=== PATIENT | female | born 1940 | race Caucasian/White ===

== ENCOUNTER 2017-07-12 19:58 | Emergency (ER) | END 2017-07-13 01:30 | disposition home or self-care (01) ==

== ENCOUNTER 2017-10-07 14:56 | Emergency (ER) | END 2017-10-07 20:05 | disposition home or self-care (01) ==

== ENCOUNTER 2017-12-17 09:08 | Emergency (ER) | END 2017-12-17 11:51 | disposition home or self-care (01) ==

== ENCOUNTER 2018-05-14 20:44 | Emergency (ER) | payer BC ==
[~2018-05-14] VITALS: Ht 147.3 cm; Wt 40.0 kg
[~2018-05-14 20:44] MED LIST: ASPI-817 PO; ATOR40TA68 PO; DEXT1DRO6 OP; FOLI-49 PO; HYDR-4011 PO; HYDR4TAB51 PO; IBUP800T48 PO; LEVO50TA7 PO; LORA1TAB PO; MIRT7.5T8 PO; QUET25TA PO; ZOLP5TAB PO
[2018-05-14 20:48] VITALS: Ht 147.3 cm; Wt 40.0 kg
[2018-05-14] MEDS ORDERED: SOD CHLORIDE 0.9% 1,000 ML IV STA (21:00)
--- NOTE | 2018-05-14 21:20 | ERD ---
ER Documentation Chief Complaint Chief Complaint "hypotension" sbp 90's: 108/60 on scene per EMS; from hospice house HPI This is a 77-year-old chronically debilitated, comatose woman brought in by EMS from [facility] facility for low blood pressure. Patient resides in a hospice house and is under hospice care. HPI was obtained by EMS and reviewing facility records. Patient has had no vomiting, no seizure activity, and his c hronically unresponsive ROS All systems reviewed and are negative except as per history of present illness. Medications Home Meds Active Scripts Hydrocodone/Acetaminophen ([place] 5-325 Tablet) 1 Each Tablet, 1 EACH PO Q8 for 5 Days, TAB Prov:ROSIBERNADETTESTELLA DO 12/17/17 Ibuprofen* (Motrin*) 800 Mg Tab, 800 MG PO Q6H PRN for PAIN AND OR ELEVATED TEMP, #30 TAB Prov:SANYA ARANDA DO 12/17/17 Reported Medications Folic Acid* (Folic Acid*) 1 Mg Tablet, 1 MG PO DAILY, TAB 12/17/17 Quetiapine Fumarate* (Seroquel*) 25 Mg Tablet, 25 MG PO BID, #60 TAB 12/17/17 Zolpidem Tartrate* (Ambien*) 5 Mg Tablet, 5 MG PO QHS PRN for INSOMNIA, #30 TAB 12/17/17 Mirtazapine* (Mirtazapine*) 7.5 Mg Tablet, 3.75 MG PO HS, TAB 12/17/17 Lorazepam* (Lorazepam*) 1 Mg Tablet, 1 MG PO Q6 PRN for ANXIETY, #60 TAB 10/07/17 Aspirin* (Aspirin* EC) 81 Mg Tablet.dr, 81 MG PO DAILY, TAB 10/07/17 Hydromorphone Hcl* (Dilaudid*) 4 Mg Tablet, 4 MG PO Q3H PRN for PAIN, TAB 10/07/17 Atorvastatin* (Atorvastatin*) 40 Mg Tablet, 40 MG PO QHS, #30 TAB 10/07/17 Dextran 70/Hypromellose (Artificial Tears) 1 Each Droperette, 1 EACH OP QID 07/12/17 Levothyroxine Sodium* (Levothyroxine Sodium*) 50 Mcg Tablet, 50 MCG PO BEFORE BREAKFAST, #30 TAB 07/12/17 Allergies Allergies: Coded Allergies: No Known Allergy (Unverified , 12/17/17) PMhx/Soc Comatose, demented History of Surgery: No (unknown) Anesthesia Reaction: No Hx Neurological Disorder: No Hx Respiratory Disorders: No Hx Cardiac Disorders: Yes (Dyslipidemia) Hx Psychiatric Problems: Yes (Alzheimer's Dse) Hx Miscellaneous Medical Probl: Yes (Conjunctivitis,Opiod Induced C onstipation,Hypothyroidism, hospice) Hx Alcohol Use: No (unknown) Hx Substance Use: No (unknown) Hx Tobacco Use: No (unknown) FmHx Family History: No diabetes Physical Exam Vitals Vital Signs Date Temp Pulse Resp B/P (MAP) Pulse Ox O2 O2 Flow FiO2 Time Delivery Rate 05/14/18 97.1 84 17 126/72 92 20:48 (90) Physical Exam Const: Elderly, chronically debilitated woman, appears dehydrated, afebrile, unresponsive HEENT: Upper and lower lip edema, eyes closed, chronic kyphosis, dry mucous membranes Resp: Clear to auscultation bilaterally Cardio: Regular rate and rhythm, no murmurs Abd: Soft, non tender, non distended. Skin: No petechiae or rashes. Superficial upper extremity ecchymosis Back: No midline or flank tenderness Ext: No cyanosis, or edema Neur: Pupils equal round reactive to light, chronic upper and lower extremity contractures, patient unresponsive Psych: Unable to assess Result Diagram: 05/14/18211505/14/182115 Results 24 hrs Laboratory Tests Test 05/14/18 21:16 05/14/18 21:25 White Blood Count 8.2 10^3/ul Red Blood Count 3.52 10^6/ul Hemoglobin 9.7 g/dl Hematocrit 31.5 % Mean Corpuscular Volume 89.5 fl Mean Corpuscular Hemoglobin 27.6 pg Mean Corpuscular Hemoglobin Concent 30.8 g/dl Red Cell Distribution Width 18.4 % Platelet Count 257 10^3/UL Mean Platelet Volume 9.9 fl Immature Granulocytes % 0.400 % Neutrophils % % Segmented Neutrophils % (Manual) 47 % Band Neutrophils % (Manual) 2 % Lymphocytes % % Lymphocytes % (Manual) 28 % Reactive Lymphocytes % (Manual) 4 % Monocytes % % Monocytes % (Manual) 11 % Eosinophils % % Eosinophils % (Manual) 3 % Basophils % % Basophils % (Manual) 1 % Metamyelocytes % (manual) 4 % Nucleated Red Blood Cells % 0.0 /100WBC Immature Granulocytes # 0.030 10^3/ul Neutrophils # 10^3/ul Neutrophils # (Manual) 3.9 10^3/ul Band Neutrophils # 0.1 10^3/ul Lymphocytes (Manual) 2.2 10^3/ul Lymphocytes # 10^3/ul Reactive Lymphocytes # 0.3 10^3/ul Monocytes # 10^3/ul Monocytes # (Manual) 0.9 10^3/ul Eosinophils # 10^3/ul Basophils # 10^3/ul Basophils # (Manual) 0.0 10^3/ul Metamyelocytes # 0.3 10^3/ul Nucleated Red Blood Cells # 10^3/ul Platelet Estimate NORMAL Polychromasia 3+ Poikilocytosis 3+ Anisocytosis 1+ Macrocytosis 1+ Target Cells 1+ Acanthocytes 1+ Sodium Level 142 mmol/L Potassium Level 4.0 mmol/L Chloride Level 108 mmol/L Carbon Dioxide Level 27 mmol/L Anion Gap 7 Blood Urea Nitrogen 24 mg/dl Creatinine 0.79 mg/dl Est Glomerular Filtrat Rate mL/min mL/min Glucose Level 108 mg/dl Calcium Level 9.3 mg/dl Urine Color YIN Urine Clarity SLIGHTLY CLOUDY Urine pH 5.0 Urine Specific Mcgregor 1.019 Urine Ketones NEGATIVE mg/dL Urine Nitrite NEGATIVE mg/dL Urine Bilirubin NEGATIVE mg/dL Urine Urobilinogen 1+ mg/dL Urine Leukocyte Esterase NEGATIVE Papito/ul Urine Microscopic RBC 9 /HPF Urine Microscopic WBC 4 /HPF Urine Squamous Epithelial Cells FEW /HPF Urine Bacteria FEW /HPF Urine Mucus MANY /HPF Urine Hemoglobin NEGATIVE mg/dL Urine Glucose NEGATIVE mg/dL Urine Total Protein NEGATIVE mg/dl Current Medications Medications Dose Sig/Stefania Start Time Status Last (Trade) Ordered Route PRN Stop Time Admin Dose Reason Admin Sodium 1,000 ml @ Q1H STAT 05/14/18 DC 05/14/18 Chloride 1,000 mls/hr IV 21:00 05/14/18 21:51 21:59 Procedures/MDM IV line was established patient was placed on cardiac monitor technician rhythm strip rev ealed a sinus rhythm at about 80 bpm with upright P and T waves. Patient was afebrile I administered 1 L normal saline IV for dehydration CBC revealed anemia, electrolytes revealed dehydration with a BUN/creatinine of 24/0.8, urinalysis negative for infection although cultures are pending I will follow-up. I spoke to family members were at the bedside, her grandson states her preferences were for no chest compressions if her heart were to stop. They would also prefer for her to be managed as an outpatient as she is generally more comfortable back in her alf. She is scheduled to undergo Fleet enema tomorrow at the alf due to chronic constipation. Patient's vital signs are normal at this time, she is no longer hypotensive Differential diagnoses considered, included but not limited to acute coronary syndrome, pulmonary embolism, aortic dissection, abdominal aortic aneurysm, sepsis, stroke, meningitis, encephalitis, pneumonia, appendicitis, cholecystitis, bowel obstruction, pyelonephritis, nephrolithiasis, cystitis, as well as metabolic, hematologic, and electrolyte abnormalities. As well as abscess, cellulitis, fractures, and dislocations. Patient feels much better at this time, and vital signs are normal, symptoms have improved. I did give strict instructions to return to the ED if symptoms continue or worsen, patient will otherwise follow-up with primary care physician. Patient understood instructions and agreed to plan. Disclaimer: Inadvertent spelling and grammatical errors are likely due to EHR/dictation software use and do not reflect on the overall quality of patient care. Also, please note that the electronic time recorded on this note does not necessarily reflect the actual time of the patient encounter. Departure Diagnosis: Primary Impression: Hypotension Hypotension type: unspecified hypotension type Qualified Codes: I95.9 - H ypotension, unspecified Additional Impression: Acute dehydration Condition: Stable GABINO PARR MD May 14, 2018 21:20
[2018-05-15 00:33] VITALS: BP 120/68; PULSE 82; RESP 12
== END 2018-05-15 01:24 | disposition home or self-care (01) ==
LOC: E/R 20:44
DX: I95.9 Hypotension, unspecified (principal); E03.9 Hypothyroidism, unspecified; G30.9 Alzheimer's disease, unspecified; E86.0 Dehydration; R40.2142 Coma scale, eyes open, spontaneous, at arrival to emergency department; R40.2352 Coma scale, best motor response, localizes pain, at arrival to emergency department; R40.2242 Coma scale, best verbal response, confused conversation, at arrival to emergency department; Z79.82 Long term (current) use of aspirin
CPT/HCPCS: 36415; 80048; 81001; 85025; 87086; 99284; J7030; P9612; 81003